=== PATIENT | female | born 1995 | race Caucasian/White ===

== ENCOUNTER → 2019-04-08 | Outpatient (CLI) | payer OTHER ==
--- NOTE | 2019-04-08 12:44 | US ---
EXAMINATION TYPE: US OB anatomy transabd DATE OF EXAM: 04/08/2019 COMPARISON: NONE HISTORY: O36.62X0 large for Dates TECHNIQUE: Transabdominal (TA) EXAM MEASUREMENTS: GESTATIONAL AGE / DATING Physician Established: (18 weeks/5 days) EDC: 09/04/2019 Dates by LMP: (18 weeks/5 days) EDC: 09/04/2019 Dates by First Scan: No previous this is first scan Dates by Current Scan for: (18 weeks/5 days) EDC: 09/04/2019 SURVEY IUP: Single PLACENTA: Anterior PREVIA: No previa YAMILETH: 13.3 cm Normal CERVICAL LENGTH (transabdominal: norm > 3.0cm): 3.7 cm BIOMETRY PRESENTATION: Breech BPD: 4.3 cm 19 weeks / 0 days HC: 15.9 cm 18 weeks / 5 days AC: 13.8 cm 19 weeks / 2 days FL: 2.9 cm 18 weeks / 5 days ESTIMATED WEIGHT IN GRAMS: 267.54 grams ESTIMATED WEIGHT IN LBS/OZ: 0 lbs. 9 oz. WEIGHT PERCENTAGE BASED ON ESTABLISHED DATE: 62 % HC/AC: 1.2 Normal FL/AC: 20.4 Normal HEART RATE: 143 bpm RHYTHM: Normal ANATOMY SEEN (within normal limits): * Lateral Vent (< 1 cm) 0.8 cm * Cisterna Magna (< 1.1 cm) 0.3 cm * Nuchal Fold (< 0.6 cm) 0.2 cm * Cerebellum (varies with age) 1.9 cm Choroid Plexus (bilateral) Midline Falx Cavus Septi Pellucidi Four Chamber Heart Outflow tracts: LVOT/RVOT Stomach Situs Nose / Lips Diaphragm Kidneys (bilateral) Bladder Cord Insert Three Vessel Cord Longitudinal Spine Transverse Spine Arms (bilateral) Legs (bilateral) Growth according to dates. Anatomy appears wnl. IMPRESSION: Single live intrauterine with a calculated sonographic age of 18 weeks and 5 days, concorda nt with menstrual age. There is an estimated date of delivery of 09/04/2019. Weight percentage based on established dates of 62%. Amnionic fluid index is within normal limits. Current presentation is br eech.
== END | disposition home or self-care (01) ==
LOC: RADUSWWP 08:55
PROVIDERS: ATTEND Obstetrics & Gynecology
DX: O32.1XX0 Maternal care for breech presentation, not applicable or unspecified (principal); Z3A.18 18 weeks gestation of pregnancy; O09.892 Supervision of other high risk pregnancies, second trimester
CPT/HCPCS: 76811

== ENCOUNTER → 2019-08-05 | Outpatient (CLI) | payer OTHER ==
--- NOTE | 2019-08-05 10:34 | US ---
EXAMINATION TYPE: US OB >= 14 wk fetus DATE OF EXAM: 08/05/2019 COMPARISON: None CLINICAL HISTORY: O36.63X0 Maternal care for excessive growth,LGA TECHNIQUE: OBTA GESTATIONAL AGE / DATING Physician Established: (35 weeks/5 days) EDC: 09/04/2019 Dates by LMP: (35 weeks/5 days) EDC: 09/04/2019 Dates by First Scan: (35 weeks/5 days) EDC: 09/04/2019 Dates by Current Scan: (35 weeks/1 days) EDC: 09/08/2019 SURVEY IUP: Single PLACENTA: Anterior PREVIA: No Previa YAMILETH: 15.3 cm Normal CERVICAL LENGTH (transabdominal: norm > 3.0cm): unable to visualize due to head shadowing and bladder not fully distended BIOMETRY PRESENTATION: Vertex LIE: Longitudinal BPD: 9.0 cm 36 weeks / 4 days HC: 31.9 cm 35 weeks / 6 days AC: 31.4 cm 35 weeks / 2 days FL: 6.8 cm 34 weeks / 6 days ESTIMATED WEIGHT IN GRAMS: 2673 grams ESTIMATED WEIGHT IN LBS/OZ: 5 lbs. 14 oz. WEIGHT PERCENTAGE BASED ON ESTABLISHED DATES: 41% HC/AC: 1.0 Normal FL/AC: 21.6 Normal HEART RATE: 134 bpm RHYTHM: Normal IMPRESSION: Single viable intrauterine as noted above.
== END | disposition home or self-care (01) ==
LOC: RADUSWWP 09:09
PROVIDERS: ATTEND Obstetrics & Gynecology
DX: O36.63X0 Maternal care for excessive fetal growth, third trimester, not applicable or unspecified (principal); Z3A.35 35 weeks gestation of pregnancy
CPT/HCPCS: 76805

== ENCOUNTER 2019-08-27 17:00 | Inpatient (IN) | payer OTHER ==
[2019-08-27] MEDS ORDERED: DINOPROSTONE 10 MG INSERT.ER VAGINAL ONE (17:23)
[2019-08-27] MEDS ORDERED: BUTORPHANOL 1 MG/ML 1 ML VIAL IV PRN (17:23)
--- NOTE | 2019-08-27 17:38 | P.HPOB ---
History of Present Illness H&P Date: 08/27/19 Chief Complaint: Requested induction This patient is a pleasant 23-year-old 1 para 0 female estimated date of confinement 09/04/2019 estimated gestational age 38-6/7 weeks who presented my office today for an OB visit was requesting induction of labor due to maternal discomfort. Patient's care is complicated by first trimester chlamydial culture positive however test to cure was negative. Patient's otherwise uncomplicated. Review of Systems Genitourinary: Reports Menstruation: Reports amenorrhea Past Medical History Past Medical History: Asthma History of Any Multi-Drug Resistant Organisms: None Reported Past Surgical History: No Surgical Hx Reported Past Anesthesia/Blood Transfusion Reactions: No Reported Reaction Past Psychological History: No Psychological Hx Reported Smoking Status: Never smoker Past Alcohol Use History: None Reported Past Drug Use History: None Reported Medications and Allergies Home Medications Medication Instructions Recorded Confirmed Type Pnv No.95/Ferrous Fum/Folic AC 1 tab PO DAILY 08/27/19 08/27/19 History [ Multivitamin Tablet] Allergies Allergy/AdvReac Type Severity Reaction Status Date / Time No Known Allergies Allergy Verified 08/27/19 17:22 Exam Intake and Output 08/27/19 08/27/19 08/27/19 06:59 14:59 22:59 Other: Weight 83.461 kg - OBG Physical Exam Abdomen: bowel sounds normal, no diffuse tenderness, no bruit present, no guarding noted, no hepatomegaly, no splenomegaly, no mass Vulva: both: normal Vagina: normal moisture, no discharge Cervix: no lesion (cervix in the office was fingertip external os but closed), no discharge Uterus: enlarged (fundal height consistent with dates.) Results labs show she is B positive, rubella immune, RPR nonreactive, HIV nonreactive, hepatitis B was negative, Glucola was abnormal with a normal three- hour gtt., group B strep was negative, ultrasounds have been normal Assessment and Plan (1) 39 weeks gestation of Narrative/Plan: This is a pleasant 23-year-old 1 para 0 female 39 weeks gestation who is requesting elective induction of labor. Patient does have an unfavorable cervix. Plan is Cervidil placement and anticipate vaginal delivery. Current Visit: Yes Status: Acute Code(s): Z3A.39 - 39 WEEKS GESTATION OF SNOMED Code(s): 81065772 (2) Elective induction of labor planned Current Visit: Yes Status: Acute Code(s): GHO9898 - SNOMED Code(s): 279895105
[2019-08-28] MEDS: LACTATED RINGERS 1,000 ML IV SCH ×2 (05:20→15:17)
[2019-08-28] MEDS ORDERED: OXYTOCIN 30 UNITS/500 ML NS 30 UNIT in SALINE 1 500ML.BAG IV SCH (05:45)
[2019-08-28] MEDS ORDERED: CARBOPROST TROMETHAMINE 250 MCG/ML 1 ML AMP IM PRN (05:45)
[2019-08-28] MEDS ORDERED: TERBUTALINE 1 MG/ML VIAL SQ PRN (05:45)
[2019-08-28] MEDS ORDERED: METHYLERGONOVINE 0.2 MG/ML 1 ML AMP IM PRN (05:45)
[2019-08-28] MEDS ORDERED: OXYTOCIN 10 UNIT/ML 1 ML VIAL IM PRN (05:45)
[2019-08-28] MEDS ORDERED: LIDOCAINE 0.5% (PF) 5 MG/ML (50 ML SDV) SQ PRN (05:45)
[2019-08-28 06:00] LABS: Basophils # (A) 0.1 k/uL (0-0.2); Basophils % (A) 1 %; Eosinophils # (A) 0.1 k/uL (0-0.7); Eosinophils % (A) 1 %; HCT 34.3 % (34.0-46.0); HGB 12.2 gm/dL (11.4-16.0); Lymphocytes # (A) 1.6 k/uL (1.0-4.8); Lymphocytes % (A) 16 %; MCH 31.9 pg (25.0-35.0); MCHC 35.5 g/dL (31.0-37.0); MCV 89.9 fL (80.0-100.0); Mean Platelet Volume 8.4; Monocytes # (A) 0.7 k/uL (0-1.0); Monocytes % (A) 7 %; Neutrophils # (A) 7.1 k/uL (1.3-7.7); Neutrophils % (A) 73 %; Platelet Count 195 k/uL (150-450); Poikilocytosis Slight; RBC 3.81 m/uL (3.80-5.40); RDW 12.9 % (11.5-15.5); WBC 9.8 k/uL (3.8-10.6)
[2019-08-28] MEDS ORDERED: ROPIVACAINE 100 MG, fentaNYL (PF) 200 MCG in SODIUM CHLORIDE 0.9% 76 ML EPIDURAL ONE (13:37)
[2019-08-28] MEDS ORDERED: OXYTOCIN 20 UNITS/1000 ML NS 1,000 ML IV SCH (19:47)
[2019-08-28] MEDS ORDERED: BENZOCAINE/MENTHOL SPRAY 1 GM/SPRAY AEROSOL TOPICAL PRN (19:47)
[2019-08-28] MEDS ORDERED: SIMETHICONE 80 MG CHEWABLE PO PRN (19:47)
[2019-08-28] MEDS ORDERED: ACETAMINOPHEN TAB 325 MG TAB PO PRN (19:47)
[2019-08-28] MEDS ORDERED: ZOLPIDEM 5 MG TAB PO PRN (19:47)
[2019-08-28] MEDS ORDERED: LANOLIN CREAM 5 GM TUBE TOPICAL PRN (19:47)
[2019-08-28] MEDS ORDERED: diphenhydrAMINE 50 MG/ML 1 ML VIAL IVP PRN (19:47)
[2019-08-28] MEDS ORDERED: diphenhydrAMINE 25 MG CAP PO PRN (19:47)
[2019-08-28] MEDS ORDERED: BISACODYL 10 MG SUPP RECTAL PRN (19:47)
[2019-08-28] MEDS ORDERED: HYDROCORTISONE 2.5% RECTAL CREAM 30 GM TUBE RECTAL PRN (19:47)
[2019-08-28] MEDS ORDERED: WITCH HAZEL 1 EACH MED..PAD TOPICAL PRN (19:47)
--- NOTE | 2019-08-28 19:52 | P.PROBDLV ---
Vaginal Delivery Note - . Vaginal Delivery Note: Normal spontaneous vaginal delivery viable female infant Apgars 9 and 9 delivery time is 1931 hrs. Please see dictated H&P for intimate details of this patient's admission. In brief summary this is a pleasant 23-year-old 1 para 0 female 39 weeks gestation admitted last evening for requested two-stage induction of labor. Patient's cervix is closed she has Cervidil placed. This morning patient is 1-2 cm dilated thick has artificial rupture membranes for clear fluid. Labor is induced with Pitocin per protocol. She progresses and does get an epidural for pain control. Patient gets to complete pushes for approximately 30 minutes pushes the head to the perineum. Posterior perineum was supported and we have controlled delivery of 's head over the intact perineum. Mouth and nares are bulb suctioned. We then have spontaneous delivery of the anterior and posterior shoulder and rest this 's body. Is a vigorous viable female infant Apgars are 9 and 9 delivery time is 1931 hrs. After delivery of the infant the umbilical cord is doubly clamped and cut appears to be trivascular. Placenta is then spontaneously delivered intact. This appeared to be some membranes missing and therefore I did explore the uterus with a ring forcep and remove any remaining membranes. I feel that I removed all these membranes there is minimal bleeding. With this done, inspection of perineum shows no lacerations and no repair. There are no complications. All counts correct 3. and mother stable delivery room.
[2019-08-28] MEDS: IBUPROFEN 600 MG TAB PO PRN (21:38)
[2019-08-28] MEDS: SENNOSIDES-DOCUSATE SODIUM 1 EACH TAB PO SCH (22:23)
[2019-08-29] MEDS ORDERED: DIPH,PERTUS(ACELL)TETVAC-LF 0.5 ML VIAL IM ONE (05:43)
--- NOTE | 2019-08-29 06:04 | P.PNOBGVD ---
Subjective - Subjective Patient reports: Reports appetite normal, Reports voiding normally, Reports pain well controlled, Reports ambulating normally : doing well Objective - Latest Vital Signs Latest vital signs: Vital Signs Temp Pulse Resp BP Pulse Ox 08/29/19 04:00 98.2 F 67 18 126/74 99 08/28/19 23:48 98.2 F 82 15 122/78 98 08/28/19 21:40 98.2 F 103 H 16 111/57 98 08/28/19 21:10 97.9 F 90 16 122/72 08/28/19 20:40 98.4 F 96 16 126/79 08/28/19 20:25 98.6 F 88 16 128/79 08/28/19 20:10 85 16 130/78 08/28/19 19:55 91 16 127/74 08/28/19 19:40 97.8 F 94 16 118/91 Intake and Output 08/28/19 08/28/19 08/29/19 14:59 22:59 06:59 Output Total 150 450 Balance -150 -450 Output: Urine 150 450 Straight 150 450 Other: # Voids 2 2 - Exam Lungs: bilateral: normal Chest: Normal S1, Normal S2 Extremities: Present: normal Abdomen: Present: normal appearance, soft Uterus: Present: normal, firm Assessment and Plan Assessment: Post day #1. Patient is resting without complaints. Vital signs are stable she is afebrile. Uterus is firm nontender she's having normal lochia. My impression is a normal course. Plan is to continue routine care discharge home most likely tomorrow (1) 39 weeks gestation of Current Visit: Yes Status: Acute Code(s): Z3A.39 - 39 WEEKS GESTATION OF SNOMED Code(s): 89474529 (2) Elective induction of labor planned Current Visit: Yes Status: Acute Code(s): GFS6506 - SNOMED Code(s): 341465530
--- NOTE | 2019-08-29 06:06 | P.DS ---
Providers Date of admission: 08/27/19 17:17 Expected date of discharge: 08/30/19 Attending physician: Bob Mckeon Primary care physician: Stated None - Discharge Diagnosis(es) (1) 39 weeks gestation of Current Visit: Yes Status: Acute (2) Elective induction of labor planned Current Visit: Yes Status: Acute Hospital Course: Please see dictated H&P for intimate details of this patient's admission. Brief summary this is a pleasant 23-year-old 1 para 0 female 39 weeks gestation admitted to labor and delivery for requested two-stage induction of labor. Patient two-stage induction of labor goes on have a vaginal delivery viable female infant. Please see dictated delivery note. day #2 patient's felt be stable for discharge home follow up with me in 6 weeks. Procedures: Two-stage induction of labor and normal vaginal delivery Patient Condition at Discharge: Good Plan - Discharge Summary New Discharge Prescriptions: New Ibuprofen [Motrin] 600 mg PO Q6HR PRN #30 tab PRN Reason: Mild Pain Or Fever >= 100.5 No Action Pnv No.95/Ferrous Fum/Folic AC [ Multivitamin Tablet] 1 tab PO DAILY Discharge Medication List Pnv No.95/Ferrous Fum/Folic AC [ Multivitamin Tablet] 1 tab PO DAILY 08/27/19 [History] Ibuprofen [Motrin] 600 mg PO Q6HR PRN #30 tab 08/29/19 [Rx] Follow up Appointment(s)/Referral(s): Bob Mckeon MD [STAFF PHYSICIAN] - 10/08/19 10:15 am Patient Instructions/Handouts: Vaginal Delivery (DC) Activity/Diet/Wound Care/Special Instructions: No intercourse or anything per vagina for 6 weeks. Please call if any fever, chills, excessive vaginal bleeding, and/or abdominal pain. Discharge Disposition: HOME SELF-CARE
[2019-08-29] MEDS: SENNOSIDES-DOCUSATE SODIUM 1 EACH TAB PO SCH (08:00)
[2019-08-29 10:28] VITALS: RESP 20
[2019-08-29] MEDS: IBUPROFEN 600 MG TAB PO PRN (13:57)
[2019-08-29 17:12] VITALS: PULSE 56
[2019-08-29 17:13] VITALS: BP 116/74; TEMP 97.7
== END 2019-08-29 20:35 | disposition home or self-care (01) | DRG 807 ==
LOC: 4FBP 17:17
PROVIDERS: ADMIT Obstetrics & Gynecology; ATTEND Obstetrics & Gynecology
PROC: 3E0P7VZ Introduction of Hormone into Female Reproductive, Via Natural or Artificial Opening (ICD-10-PCS; 2019-08-27)
PROC: 3E033VJ Introduction of Other Hormone into Peripheral Vein, Percutaneous Approach (ICD-10-PCS; 2019-08-27)
PROC: 10D17Z9 Manual Extraction of Products of Conception, Retained, Via Natural or Artificial Opening (ICD-10-PCS; principal; 2019-08-28)
PROC: 10E0XZZ Delivery of Products of Conception, External Approach (ICD-10-PCS; 2019-08-28)
PROC: 10907ZC Drainage of Amniotic Fluid, Therapeutic from Products of Conception, Via Natural or Artificial Opening (ICD-10-PCS; 2019-08-28)
PROC: 00HU33Z Insertion of Infusion Device into Spinal Canal, Percutaneous Approach (ICD-10-PCS; 2019-08-28)
PROC: 3E0R3BZ Introduction of Anesthetic Agent into Spinal Canal, Percutaneous Approach (ICD-10-PCS; 2019-08-28)
PROC: 3E0234Z Introduction of Serum, Toxoid and Vaccine into Muscle, Percutaneous Approach (ICD-10-PCS; 2019-08-29)
DX: O73.1 Retained portions of placenta and membranes, without hemorrhage (principal); Z37.0 Single live birth; Z3A.39 39 weeks gestation of pregnancy; O99.52 Diseases of the respiratory system complicating childbirth; J45.909 Unspecified asthma, uncomplicated; Z23 Encounter for immunization; Z79.899 Other long term (current) drug therapy
CPT/HCPCS: 85025; 86850; 86900; 86901; 90715

== ENCOUNTER 2024-05-26 10:35 | Emergency (ER) | payer OTHER ==
[2024-05-26 10:44] VITALS: RESP 18
--- NOTE | 2024-05-26 11:07 | ED ---
Female Urogenital HPI - General Chief complaint: Vaginal Bleeding Stated complaint: preg,cramping/vag bleeding Time Seen by Provider: 05/26/24 10:51 Source: patient, RN notes reviewed Mode of arrival: ambulatory Limitations: no limitations - History of Present Illness Initial comments: 28-year-old female [id number] presents emergency department chief complaint of lower abdominal cramping and vaginal bleeding that has occurred over the past 3 days. Patient states that she took an at home test on Sunday. Patient lives that her last menstrual cycle was in the beginning of April. Patient denies fevers, chills, dysuria or hematuria. Endorses intermittent nausea. Patient has not had care for this yet. Last Menstrual Period: 04/10/24 - Related Data Home Medications Medication Instructions Recorded Confirmed Pnv No.95/Ferrous Fum/Folic AC 1 tab PO DAILY 08/27/19 08/27/19 [ Multivitamin Tablet] Previous Rx's Medication Instructions Recorded Ibuprofen [Motrin] 600 mg PO Q6HR PRN #30 tab 08/29/19 Allergies Allergy/AdvReac Type Severity Reaction Status Date / Time No Known Allergies Allergy Verified 05/26/24 10:44 Review of Systems ROS Statement: Those systems with pertinent positive or pertinent negative responses have been documented in the HPI. ROS Other: All systems not noted in ROS Statement are negative. Past Medical History Past Medical History: Asthma History of Any Multi-Drug Resistant Organisms: None Reported Past Surgical History: No Surgical Hx Reported Past Anesthesia/Blood Transfusion Reactions: No Reported Reaction Past Psychological History: No Psychological Hx Reported Smoking Status: Vaper Past Alcohol Use History: Rare Past Drug Use History: None Reported - Past Family History Mother Family Medical History: No Reported History General Exam Limitations: no limitations General appearance: alert, in no apparent distress Eye exam: Present: normal appearance, PERRL, EOMI. Absent: scleral icterus, conjunctival injection, periorbital swelling Respiratory exam: Present: normal lung sounds bilaterally. Absent: respiratory distress, wheezes, rales, rhonchi, stridor Cardiovascular Exam: Present: regular rate, normal rhythm, normal heart sounds. Absent: systolic murmur, diastolic murmur, rubs, gallop, clicks GI/Abdominal exam: Present: soft, tenderness (suprapubic), normal bowel sounds. Absent: distended, guarding, rebound, rigid Extremities exam: Present: normal inspection, full ROM, normal capillary refill. Absent: tenderness, pedal edema, joint swelling, calf tenderness Back exam: Present: normal inspection Skin exam: Present: warm, dry, intact, normal color. Absent: rash Course Vital Signs 05/26/24 10:41 Temperature 98 F Pulse Rate 78 Respiratory 18 Rate Blood Pressure 136/78 O2 Sat by Pulse 98 Oximetry Medical Decision Making - Medical Decision Making Was pt. sent in by a medical professional or institution (, PA, POWER PLANT INSPECTOR, urgent care, hospital, or [place] health care facility...) When possible be specific @ -No Did you speak to anyone other than the patient for history (EMS, parent, family, police, friend...)? What history was obtained from this source @ -No Did you review nursing and triage notes (agree or disagree)? Why? @ -I reviewed and agree with nursing and triage notes Were old charts reviewed (outside hosp., previous admission, EMS record, old EKG, old radiological studies, urgent care reports/EKG's, [place] health care facility records)? Report findings @ -No old charts were reviewed Differential Diagnosis (chest pain, altered mental status, abdominal pain women, abdominal pain men, vaginal bleeding, weakness, fever, dyspnea, syncope, headache, dizziness, GI bleed, back pain, seizure, CVA, palpatations, mental health, musculoskeletal)? @ -Differential Vaginal Bleeding: Spontaneous , threatened , molar , ectopic , bloody show, incompetent cervix, abruptioplacenta, placenta previa, uterine rupture, dysfunctional uterine bleeding, hemorrhage, uterine fibroids, this is not meant to be an all-inclusive list. EKG interpreted by me (3pts min.). @ -None X-rays interpreted by me (1pt min.). @ -None done CT interpreted by me (1pt min.). @ -None done U/S interpreted by me (1pt. min.). @ -Transabdominal ultrasound reveals a single live intrauterine with a gestational age of 8 weeks and 2 days, mild tachycardia of 181 and a small 2.3 cm. Gestational bleed and a corpus luteum of the right ovary measuring 1.7 cm. What testing was considered but not performed or refused? (CT, X-rays, U/S, labs)? Why? @ -None What meds were considered but not given or refused? Why? @ -None Did you discuss the management of the patient with other professionals (professionals i.e. , PA, POWER PLANT INSPECTOR, lab, RT, psych nurse, social services, admiralty lawyer, teacher, giving officer, vocational case manager)? Give summary @ -No Was smoking cessation discussed for >3mins.? @ -No Was critical care preformed (if so, how long)? @ -No Were there social determinants of health that impacted care today? How? (Homelessness, low income, unemployed, alcoholism, drug addiction, transportation, low edu. Level, literacy, decrease access to med. care, snf, rehab)? @ -No Was there de-escalation of care discussed even if they declined (Discuss DNR or withdrawal of care, Hospice)? DNR status @ -No What co-morbidities impacted this encounter? (DM, HTN, Smoking, COPD, CAD, Cancer, CVA, ARF, Chemo, Hep., AIDS, mental health diagnosis, sleep apnea, morbid obesity)? @ -None Was patient admitted / discharged? Hospital course, mention meds given and route, prescriptions, significant lab abnormalities, going to OR and other pertinent info. @ -discharged. 28-year-old female with abdominal pain, cramping and vaginal bleeding. My impression the patient she is resting comfortably no signs of ac sycuan distress. Abdominal examination reveals mild tenderness to palpation over the suprapubic region. Patient was offered fluids, antiemetics, pain medication which is declined at this time. Labs including CBC, CMP and urinalysis with hCG ordered. CBC and CMP unremarkable, urinal reveals trace blood and 1+ ketones which is consistent with mild dehydration. hCG qualitative level is de tected. Interpretation of patient's urine test hCG quantitative level ordered in addition to ultrasound due to patient having abdominal pain, cramping and vaginal bleeding during with no history [place] [address].0. Ultrasound markable for single live i ntrauterine with a gestational age of 8 weeks and 2 days. blood type is B+ Recommend the patient follows up with OB within the next 1 to 2 weeks for further evaluation of tachycardia. Questions answered at bedside and strict return parameters clover with the patient she is verbalized understanding. Case discussed with Dr. Solis Undiagnosed new problem with uncertain prognosis? @ -No Drug Therapy requiring intensive monitoring for toxicity (Heparin, Nitro, Insulin, Cardizem)? @ -No Were any procedures done? @ -No Diagnosis/symptom? @ -intrauterine , tachycardia, Acute, or Chronic, or Acute on Chronic? @ -Acute Uncomplicated (without systemic symptoms) or Complicated (systemic symptoms)? @ -Uncomplicated Side effects of treatment? @ -No Exacerbation, Progression, or Severe Exacerbation? @ -No Poses a threat to life or bodily function? How? (Chest pain, [place], [place], pneumonia, PE, COPD, DKA, ARF, appy, cholecystitis, CVA, Diverticulitis, Homicidal, Suicidal, threat to staff... and all critical care pts) @ -No - Lab Data Result diagrams: 05/26/24 11:30 05/26/24 11:30 Lab Results 05/26/24 05/26/24 05/26/24 Range/Units 10:55 10:55 11:30 WBC 5.0 (3.8-10.6) k/uL RBC 3.96 (3.80-5.40) m/uL Hgb 12.6 (11.4-16.0) gm/dL Hct 36.0 (34.0-46.0) % MCV 90.9 (80.0-100.0) fL MCH 31.8 (25.0-35.0) pg MCHC 35.0 (31.0-37.0) g/dL RDW 12.4 (11.5-15.5) % Plt Count 208 (150-450) k/uL MPV 7.5 Neutrophils % 68 % Lymphocytes % 22 % Monocytes % 7 % Eosinophils % 2 % Basophils % 1 % Neutrophils # 3.4 (1.3-7.7) k/uL Lymphocytes # 1.1 (1.0-4.8) k/uL Monocytes # 0.4 (0-1.0) k/uL Eosinophils # 0.1 (0-0.7) k/uL Basophils # 0.0 (0-0.2) k/uL Sodium (137-145) mmol/L Potassium (3.5-5.1) mmol/L Chloride (98-107) mmol/L Carbon Dioxide (22-30) mmol/L Anion Gap mmol/L BUN (7-17) mg/dL Creatinine (0.52-1.04) mg/dL Est GFR (CKD-EPI)AfAm (>60 ml/min/1.73 sqM) Est GFR (CKD-EPI)NonAf (>60 ml/min/1.73 sqM) Glucose (74-99) mg/dL Calcium (8.4-10.2) mg/dL Total Bilirubin (0.2-1.3) mg/dL AST (14-36) U/L ALT (4-34) U/L Alkaline Phosphatase (38-126) U/L Total Protein (6.3-8.2) g/dL Albumin (3.5-5.0) g/dL HCG, Quant mIU/mL Urine Color Yellow Urine Appearance Clear (Clear) Urine pH 6.5 (5.0-8.0) Ur Specific [place] 1.017 (1.001-1.035) Urine Protein Negative (Negative) Urine Glucose (UA) Negative (Negative) Urine Ketones 1+ H (Negative) Urine Blood Trace H (Negative) Urine Nitrite Negative (Negative) Urine Bilirubin Negative (Negative) Urine Urobilinogen <2.0 (<2.0) mg/dL Ur Leukocyte Esterase Trace H (Negative) Urine RBC 2 (0-5) /hpf Urine WBC 3 (0-5) /hpf Ur Squamous Epith Cells 5 H (0-4) /hpf Urine Bacteria Rare H (None) /hpf Urine Mucus Rare H (None) /hpf Urine HCG, Qual Detected (Not Detectd) 05/26/24 05/26/24 Range/Units 11:30 11:30 WBC (3.8-10.6) k/uL RBC (3.80-5.40) m/uL Hgb (11.4-16.0) gm/dL Hct (34.0-46.0) % MCV (80.0-100.0) fL MCH (25.0-35.0) pg MCHC (31.0-37.0) g/dL RDW (11.5-15.5) % Plt Count (150-450) k/uL MPV Neutrophils % % Lymphocytes % % Monocytes % % Eosinophils % % Basophils % % Neutrophils # (1.3-7.7) k/uL Lymphocytes # (1.0-4.8) k/uL Monocytes # (0-1.0) k/uL Eosinophils # (0-0.7) k/uL Basophils # (0-0.2) k/uL Sodium 137 (137-145) mmol/L Potassium 3.8 (3.5-5.1) mmol/L Chloride 104 (98-107) mmol/L Carbon Dioxide 26 (22-30) mmol/L Anion Gap 7 mmol/L BUN 12 (7-17) mg/dL Creatinine 0.64 (0.52-1.04) mg/dL Est GFR (CKD-EPI)AfAm >90 (>60 ml/min/1.73 sqM) Est GFR (CKD-EPI)NonAf >90 (>60 ml/min/1.73 sqM) Glucose 83 (74-99) mg/dL Calcium 9.4 (8.4-10.2) mg/dL Total Bilirubin 0.8 (0.2-1.3) mg/dL AST 23 (14-36) U/L ALT 22 (4-34) U/L Alkaline Phosphatase 31 L (38-126) U/L Total Protein 6.7 (6.3-8.2) g/dL Albumin 4.2 (3.5-5.0) g/dL HCG, Quant 33926.0 mIU/mL Urine Color Urine Appearance (Clear) Urine pH (5.0-8.0) Ur Specific [place] (1.001-1.035) Urine Protein (Negative) Urine Glucose (UA) (Negative) Urine Ketones (Negative) Urine Blood (Negative) Urine Nitrite (Negative) Urine Bilirubin (Negative) Urine Urobilinogen (<2.0) mg/dL Ur Leukocyte Esterase (Negative) Urine RBC (0-5) /hpf Urine WBC (0-5) /hpf Ur Squamous Epith Cells (0-4) /hpf Urine Bacteria (None) /hpf Urine Mucus (None) /hpf Urine HCG, Qual (Not Detectd) Disposition Clinical Impression: Intrauterine , Vaginal bleeding in Disposition: HOME SELF-CARE Condition: Good Instructions (If sedation given, give patient instructions): Threatened Miscarriage (ED) Additional Instructions: Return emergency department any new or worsening symptoms. Recommend that you follow-up with OB for further evaluation. Is patient prescribed a controlled substance at d/c from ED?: No Referrals: None,Stated [Primary Care Provider] - 1-2 days Time of Disposition: 12:59
[2024-05-26 11:39] LABS: Basophils % (A) 1 %; Eosinophils # (A) 0.1 k/uL (0-0.7); Eosinophils % (A) 2 %; HGB 12.6 gm/dL (11.4-16.0); Lymphocytes # (A) 1.1 k/uL (1.0-4.8); Lymphocytes % (A) 22 %; MCH 31.8 pg (25.0-35.0); MCV 90.9 fL (80.0-100.0); Mean Platelet Volume 7.5; Monocytes # (A) 0.4 k/uL (0-1.0); Monocytes % (A) 7 %; Neutrophils # (A) 3.4 k/uL (1.3-7.7); Neutrophils % (A) 68 %; Platelet Count 208 k/uL (150-450); RBC 3.96 m/uL (3.80-5.40); RDW 12.4 % (11.5-15.5)
[2024-05-26 11:41] LABS: Appearance,Urine Clear (Clear); Bacteria,Urine Rare /hpf; Bilirubin,Urine Negative (Negative); Blood,Urine Trace (Negative); Color,Urine Yellow; Glucose,Urine (UA) Negative (Negative); Ketones,Urine 1+ (Negative); Leukocyte Esterase,Urine Trace (Negative); Mucus,Urine Rare /hpf; Nitrite,Urine Negative (Negative); PH, Urine 6.5 (5.0-8.0); Protein,Urine Negative (Negative); RBC,Urine 2 /hpf (0-5); Specific Gravity,Urine 1.017 (1.001-1.035); Squamous Epithelial Cell,Urine 5 /hpf (0-4); Urobilinogen,Urine <2.0 mg/dL (<2.0); WBC,Urine 3 /hpf (0-5)
[2024-05-26 11:59] LABS: ALT 22 U/L (4-34); AST 23 U/L (14-36); African American GFR (CKD) >90 (>60 ml/min/1.73 sqM); Albumin 4.2 g/dL (3.5-5.0); Alkaline Phosphatase 31 U/L (38-126); Anion Gap 7 mmol/L; Blood Urea Nitrogen 12 mg/dL (7-17); Calcium 9.4 mg/dL (8.4-10.2); Carbon Dioxide 26 mmol/L (22-30); Chloride 104 mmol/L (98-107); Glucose 83 mg/dL (74-99); Non-African American GFR(CKD) >90 (>60 ml/min/1.73 sqM); Potassium 3.8 mmol/L (3.5-5.1); Sodium 137 mmol/L (137-145); Total Bilirubin 0.8 mg/dL (0.2-1.3); Total Protein 6.7 g/dL (6.3-8.2)
--- NOTE | 2024-05-26 12:39 | US ---
EXAMINATION TYPE: Ultrasound OB <= 14 week fetus DATE OF EXAM: 05/26/2024 12:21 PM COMPARISON: NONE CLINICAL INDICATION: Female, 28 years old with history of vaginal bleeding, lower ab cramping + pregn bryce; cramping and spotting. EXAM PERFORMED: Transabdominal (TA) EXAM MEASUREMENTS: GESTATIONAL AGE / DATING Physician Established: Not yet established Dates by LMP: LMP unknown Dates by First Scan: No previous this is first scan Dates by Current Scan for: (8 weeks/2 days) EDC: 01/03/25 MATERNAL ANATOMY Uterus: 11.6 x 7.3 x 5.4cm Right Ovary: 3.4 x 2.5 x 2.4cm Left Ovary: 2.9 x 2.0 x 1.7cm Post CDS / Adnexa: wnl Presence of free fluid: No Presence of corpus luteal cyst: Within the right ovary measuring 1.5 x 1.7 x 1.6cm Presence of subchorionic bleed: Measuring 2.3 x 1.1 x 0.9cm GESTATION / SURVEY CRL: 1.7cm (8 weeks/2 days) MSD: wnl Yolk Sac (normal less than 6mm): 3.7mm Heart Rate: 181 bpm Rhythm: Normal IUP: Viable IUP Date of LMP: unknown Beta HcG (if available): Pending Senior Web Developer notes: Single live IUP seen measuring 8 weeks 2 days IMPRESSION: 1. Single live intrauterine with gestational age of 8 weeks 2 days by crown-rump length. 2. Short interval follow-up recommended given mild tachycardia of 181 bpm and a small 2.3 cm pe rigestational bleed. 3. Corpus luteum of the right ovary measuring 1.7 cm. [facility], , 05/26/2024 12:36 PM
[2024-05-26 13:02] VITALS: BP 98/68; PULSE 77; TEMP 98.4
== END 2024-05-26 13:08 | disposition home or self-care (01) ==
LOC: EC 10:35
DX: O20.9 Hemorrhage in early pregnancy, unspecified (principal); O99.344 Other mental disorders complicating childbirth; F17.290 Nicotine dependence, other tobacco product, uncomplicated; Z3A.08 8 weeks gestation of pregnancy
CPT/HCPCS: 36415; 76801; 80053; 81001; 81025; 84702; 85025; 86900; 86901; 99284